=== PATIENT | male | born 1975 | race African-American/Black ===

== ENCOUNTER 2017-02-13 17:39 | Inpatient (IN) ==
[2017-02-13] MEDS ORDERED: SODIUM CHLORIDE 0.9% 1,000 ML IV STA (18:10)
[2017-02-13 18:26] LABS: ABG Base Excess -12.7 MMOL/L (-2.5-2.5); ABG HCO3 14.8 MMOL/L (20-26); ABG Oxygen Saturation 96.8 % (95-100); ABG PCO2 28.4 MM HG (35-48); ABG PH 7.271 (7.35-7.45); ABG PO2 87.3 MM HG (80-95); ABG TCO2 11.5 MMOL/L (23-27); Allen Test Positive
--- NOTE | 2017-02-13 18:37 | Emergency Department Note ---
Perez Najera Brittany, am scribing for, and in the presence of, Torres Dahl M.D. 18:22. Hesham Najera Howard T, M.D., personally performed the services described in this documentation, ascribed by Susy Todd in my presence, and it is both accurate and complete 836 . Arrival - Arrival Chief Complaint: Non-Specific Stated Complaint: HYPERGLYCEMIA ED Nursing Triage Note: C/O HAVING FREQUENT BLOOD GLUCOSE., STATES IT WAS 563 AT HOME FROM A FRIENDS METER, STATES WENT TO HOSPITAL AND THEN IT WAS 461, STATES HE HAS HAD INCREASE URINATION AND INCREASED THIRST OVER THE LAST FEW WEEK Mode of Arrival: Stretcher Limitations: No Limitations Source: Patient, RN Notes Reviewed - History of Present Illness HPI Narrative: Patient is a 41 y/o black male presenting to the ED by EMS from [facility] for further evaluation of DKA. Patient reports that for the past 3 weeks he essentially felt different. He states that he began to have symptoms of fatigue, polydipsia and polyuria. Patient reports that he has no prior history of Diabetes Mellitus, but knows his family history is significant for this history. He notes that last week he did have an episode of nausea and vomiting. He denies any abdominal pain, constipation, or diarrhea. Patient has not eaten today. Per triage note patient took blood glucose levels at home with a friends glucometer which read 563 mg/dL. Upon arrival to [facility] levels were 461 mg/dL. Patient has no other complaint/pain in the ED at this time. Review of System - Review of System 12 point system: reviewed and no additional remarkable complaints except as stated - Review of System Constitutional: Present: as per HPI. Absent: chills, fever Eyes: Absent: vision change Head/Ears/Nose/Throat: Absent: nasal drainage, sore throat Respiratory: Absent: respiratory distress Cardiovascular: Absent: chest pain, palpitations Gastrointestinal: Present: nausea, vomiting. Absent: abdominal pain, diarrhea, constipation Musculoskeletal: Absent: arm pain, back pain, leg pain, neck pain Skin: Absent: rash Neurological: Absent: headache Psychiatric: Absent: anxiety, depression Endocrine: Present: as per HPI, polydipsia, polyuria Hematological/Lymphatic: Absent: easy bleeding, easy bruising Medical,Surgical,& Family Hx - Social History Smoking Status: Smoker, status unknown Frequency of Alcohol Use: Occasionally Type of Drug Use: Marijuana Exam Vital Signs: Vital Signs Temperature 98.0 F 02/13/17 17:42 Pulse Rate 89 02/13/17 17:42 Respiratory Rate 20 02/13/17 17:42 Blood Pressure 135/78 02/13/17 17:42 O2 Sat by Pulse Oximetry 100 02/13/17 17:42 - General General appearance: alert, in no apparent distress - Head Head exam: Present: atraumatic, normocephalic, normal inspection - Eye Eye exam: Present: normal appearance, PERRL, EOMI - ENT ENT exam: Present: normal exam, normal oropharynx, mucous membranes moist - Neck Neck exam: Present: normal inspection, full ROM, trachea midline - Chest Chest inspection: Present: normal inspection, symmetric chest wall rise - Respiratory Respiratory exam: Present: normal lung sounds bilaterally. Absent: rales, rhonchi, wheezes - Cardiovascular Cardiovascular exam: Present: regular rate, normal rhythm, normal heart sounds. Absent: murmur, rubs, gallop - Abdominal Exam Abdominal exam: Present: soft, normal bowel sounds. Absent: distention, tenderness - Extremities Exam Extremities exam: Present: normal inspection - Back Exam Back exam: Present: normal inspection - Neurological Exam Neurological exam: Present: alert, oriented X3, CN II-XII intact. Absent: motor sensory deficit - Psychiatric Psychiatric exam: Present: normal affect - Skin Skin exam: Present: warm, dry Course Course Narrative: Medical decision making: Patient appears comfortable and has no complaints but history is significant for DKA new onset diabetes and therefore discussed with hospitalist for admission and to continue DKA treatment. Results - Labs Lab Results: I have reviewed the patients labs Labs: Laboratory Tests 02/13/17 18:10 ABG pH 7.271 L ABG pCO2 28.4 L ABG pO2 87.3 ABG HCO3 14.8 L ABG Total CO2 11.5 L ABG O2 Saturation 96.8 ABG Base Excess -12.7 L FiO2 21.00 Disposition Clinical Impression: DKA (diabetic ketoacidoses) Case discussed with: patient Disposition: Disch/Xfer-[facility] Term Hos Condition: Stable Time of Disposition: 18:36
[2017-02-13] MEDS ORDERED: MAGNESIUM SULF RIDER 4 GM in PREMIX 1 EACH IV PRN (18:43)
[2017-02-13] MEDS ORDERED: MAGNESIUM SULF RIDER 2 GM in PREMIX 1 EACH IV PRN (18:43)
[2017-02-13] MEDS ORDERED: DEXTROSE 50% 25 GM/50 ML VIAL IV PRN ×2 (18:43)
[2017-02-13] MEDS ORDERED: SODIUM CHLORIDE 0.9% IV PRN (18:54)
[2017-02-13] MEDS ORDERED: SODIUM BICARB INJ 100 MEQ in STERILE WATER INJ 400 ML IV PRN (18:54)
[2017-02-13] MEDS ORDERED: SODIUM PHOSPHATE IV PRN (18:54)
[2017-02-13] MEDS ORDERED: SODIUM CHLORIDE 0.9% 1,000 ML IV ONE (18:54)
--- NOTE | 2017-02-13 19:04 | XRay Report ---
Exam: XR chest 1V Date: 02/13/2017 6:44 PM Comparison: None Indication: Shortness of breath Technique:[Portable AP sitting chest] Findings: The heart is normal in size with minimal diffuse parenchymal findings at the lung bases. Unremarkable mediastinum and osseous structures appear Impression: Minimal atelectasis/infiltration at the lung bases. PROCEDURE INTERPRETED AT [facility] DEPARTMENT OF RADIOLOGY Final Report Signed by: Dr. Ana Mederos
[2017-02-13 19:05] LABS: Magnesium 2.2 MG/DL (1.8-2.4); Phosphorous 1.5 MG/DL (2.5-4.9)
[2017-02-13 19:12] LABS: Calcium 7.7 MG/DL (8.5-10.1); Osmolality,Calculated 277.1 MOS/KG (273-304); Potassium 3.9 MMOL/L (3.5-5.1)
--- NOTE | 2017-02-13 19:30 | Hospitalist History & Physical ---
Assessment and Plan - Time spent with patient Time spent with patient: Greater than 30 minutes (1) DKA (diabetic ketoacidoses) Status: Acute Assessment and plan: pH 7.27, pCO2 28.4, HCO3 14.8, Glu 270, b-Hydroxybutyric 4.8. IV fluids. Insulin per protocol. Hemoglobin A1c Current Visit: Yes History of Present Illness Chief complaint: DKA History of present illness: Mr. Becker is a 41 year old male with no significant past medical history presented to the ED today with complaints of new onset hyperglycemia. The patient stated that he noted increased thirst, urinating about 3 weeks ago. He states that today, while visiting family, he checked his blood sugar and noted it to be 564. He decided to come to the hospital to have this evaluated. On exam , the patient is lying in bed and in NAD. His is at bedside. He denies any vision changes, headache, chest pain, near syncope, diaphoresis, N/V/D or numbness/tingling. He does note a decrease in his appetite over the last 3 weeks and says that he believes he has lost approximately 50 pounds in that time. Preliminary lab work shows DKA pH 7.27 pCO2 28.4 HCO3 14.8. Na 135, K 3.9 , CO2 18, BUN 6, Cr 1.00, Glu 270, b-Hydroxybutyric 4.8. He will be admitted to the hospital medicine team for further evaluation and treatment. This patient is a full code. Medical,Surgical,& Family Hx - Social History Smoking Status: Current every day smoker (1 pk every 2 days) Frequency of Alcohol Use: Occasionally Type of Drug Use: Marijuana Marital Status: Lives With:: Spouse Functional capacity: independent ambulation 12 point system: reviewed and no additional remarkable complaints except as stated Exam - Constitutional Vitals: Period Temp Pulse Resp BP Sys/Gomes Pulse Ox Last 24 Hr 80 20 129/84 100 Exam: General appearance: obese, no acute distress - Head Head exam: Present: normocephalic, atraumatic - Eye Eye exam: Present: EOMI. Absent: conjunctival injection, nystagmus Pupils: Present: XIMENA, normal accommodation - ENT ENT exam: Present: normal exam, normal external ear exam - Neck Neck exam: Present: normal inspection. Absent: lymphadenopathy, tenderness, thyromegaly - Respiratory Respiratory exam: Present: clear to auscultation bilaterally. Absent: rales, rhonchi, wheezes - Cardiovascular Cardiovascular exam: Present: regular rate and rhythm. Absent: carotid bruit, gallop, rubs - GI/Abdominal GI/Abdominal exam: Present: normal bowel sounds. Absent: ascites, distended, mass - Extremities Exam Extremities exam: Present: normal inspection, normal capillary refill. Absent: edema - Back Exam Back exam: Absent: CVA tenderness (L), CVA tenderness (R) - Neurological Exam Neurological exam: Present: alert, oriented X3 - Psychiatric Psychiatric exam: Present: normal affect, normal mood - Skin Skin exam: Present: normal color, warm, dry Results - Labs CBC & BMP: 02/13/17 18:32 Lab Results: I have reviewed the past 24 hour labs
[2017-02-13] MEDS: INSULIN REGULAR DRIP 100 ML IV SCH (20:20)
[2017-02-13] MEDS: SODIUM CHLORIDE 0.9% 1,000 ML IV SCH (21:12)
[2017-02-13 21:57] LABS: Apearance,Urine CLEAR (Clear); Bilirubin,Urine Negative (Negative); Blood, Urine Moderate mg/dL (Negative); Glucose,Urine (UA) >=500 mg/dL (Negative); Ketones,Urine 80 mg/dL (Negative); Mucus,Urine Occasional /LPF (Occasional); Nitrite,Urine Negative (Negative); Protein,Urine Negative; RBC,Urine <1 /HPF (0-4); Urine Color Straw (Yellow); Urine Specific Gravity 1.014 (1.001-1.035); Urine Urobilinogen < 2.0 EU/DL (0.2-1.0); WBC,Urine 1 /HPF (0-6)
[2017-02-13] MEDS: DEXTROSE 5% NACL 0.9% 1,000 ML IV SCH (22:20)
[2017-02-13 23:24] LABS: Calcium 7.2 MG/DL (8.5-10.1); Osmolality,Calculated 278.4 MOS/KG (273-304); Potassium 3.2 MMOL/L (3.5-5.1)
[2017-02-13] MEDS: POTASSIUM CHLORIDE RIDER 10 MEQ in PREMIX 1 EACH IV PRN (23:40)
[2017-02-14] MEDS ORDERED: SODIUM CHLORIDE 0.9% 1,000 ML IV SCH (00:05)
[2017-02-14] MEDS: DEXTROSE 5% NACL 0.9% 1,000 ML IV SCH ×4 (00:47→08:43)
[2017-02-14] MEDS: POTASSIUM CHLORIDE RIDER 10 MEQ in PREMIX 1 EACH IV PRN ×4 (00:49→08:35)
[2017-02-14] MEDS: SODIUM CHLORIDE 0.9% 1,000 ML IV SCH ×3 (02:10→16:19)
[2017-02-14 03:22] LABS: Basophils % 0.3 % (0.0-0.8); Eosinophils # 0.1 10*3/uL (0.0-0.87); Eosinophils % 1.2 % (0.00-10.9); Hematocrit 35.5 VOL% (42.0-52.0); Hemoglobin 12.2 GM/DL (14.0-18.0); Immature Granulocytes % 0.6 %; Immature Granulocytes Absolute 0.04 #; Lymphocytes # 1.5 10*3/uL (1.4-4.0); Lymphocytes % 22.5 % (21.2-54.2); Mean Corpuscular HGB Conc 34.4 GM/DL (32-36); Mean Corpuscular Hemoglobin 26 PG (27-34); Mean Corpuscular Volume 75.5 FL (87-102); Monocytes # 0.4 10*3/uL (0.11-0.8); Monocytes % 6.6 % (1.7-12.7); Neutrophils # 4.6 10*3/uL (1.4-7.4); Neutrophils % 68.8 % (38.7-73.9); Platelet Count 198 T/CUMM (130-400); White Blood Count 6.6 T/CUMM (4-12)
[2017-02-14 03:41] LABS: Magnesium 1.9 MG/DL (1.8-2.4); Phosphorous 0.7 MG/DL (2.5-4.9)
[2017-02-14 03:43] LABS: Risk Ratio 4.54; VLDL CHOLESTEROL 73.8 MG/DL
[2017-02-14 03:49] LABS: Calcium 7.5 MG/DL (8.5-10.1); Osmolality,Calculated 279.3 MOS/KG (273-304); Potassium 3.3 MMOL/L (3.5-5.1)
[2017-02-14] MEDS: INSULIN REGULAR DRIP 100 ML IV SCH (04:03)
[2017-02-14] MEDS: DEXT 5% NACL 0.45% KCL 20 MEQ 20 MEQ/1,000 ML BAG IV SCH ×2 (05:55→09:47)
[2017-02-14 08:27] LABS: Calcium 7.3 MG/DL (8.5-10.1); Osmolality,Calculated 281.1 MOS/KG (273-304); Potassium 3.3 MMOL/L (3.5-5.1)
[2017-02-14] MEDS ORDERED: DEXTROSE 50% 25 GM/50 ML VIAL IV PRN (08:39)
[2017-02-14] MEDS ORDERED: GLUCAGON 1 MG VIAL IM PRN (08:39)
[2017-02-14] MEDS: PANTOPRAZOLE 40 MG TABLET PO SCH (08:48)
--- NOTE | 2017-02-14 09:00 | Hospitalist Progress Note ---
Assessment and Plan (1) Diabetes mellitus type 2 with hyperosmolarity, uncontrolled Status: Acute Assessment and plan: This patient was admitted to the hospital with elevated blood glucose and mild volume depletion associated acidosis. Because of age 41, mild obesity, and family history of diabetes mellitus type 2, it appears that the patient has diabetes mellitus type 2. The patient has been treated overnight with volume resuscitation and IV infusion of insulin. The patient's blood glucose has better controlled now he is ready to transition to oral diet, repletion of potassium, sliding scale insulin, and initiate oral antidiabetic medications. Diabetes education is underway. The patient is ready to transfer out of intensive care. Current Visit: Yes Qualifiers: Diabetes mellitus complication detail: without coma Diabetes mellitus livestock nutritionist insulin use: without livestock nutritionist use Qualified Code(s): E11.00 - Type 2 diabetes mellitus with hyperosmolarity without nonketotic hyperglycemic- hyperosmolar coma ([facility]) (2) Hypokalemia Status: Acute Current Visit: Yes Hospitalist: Subjective Interval history: The patient is awake alert and oriented. The patient is hungry and ready to eat. The patient has no complaint of shortness of breath or chest pain. Exam - Constitutional Vitals: Period Temp Pulse Resp BP Sys/Gomes Pulse Ox Last 24 Hr 97.4 F-98.3 F 74-89 14-21 100-148/60-94 94-100 Exam: Constitutional System: No distress. No tremulousness. Head: Normocephalic, atraumatic. Ears, Nose and Throat System: No evidence of Otitis or Mastoiditis. No epistaxis or discharge Eyes System: Pupils equal, round, and reactive. Extraocular muscles intact. Neck: Supple, without adenopathy, No jugular venous distention. No thyromegaly , neck mass, or prior surgery apparent. Respiratory System: Chest clear to auscultation. Cardiovascular System: Heart with regular rate and rhythm. No murmur. GI System: Abdomen soft, nontender. Normo active bowel sounds present. Musculoskeletal System: limbs with no pedal edema. Full distal pulses. Neurological System: No discernable sensory deficit. No aphasia Psychiatric System: Conversation is rational Results - Labs CBC & BMP: 02/14/17 03:15 02/14/17 07:55 Lab Results: I have reviewed the past 24 hour labs
[2017-02-14] MEDS: INSULIN LISPRO 100 UNIT/ML SUBCUT SCH ×4 (09:05→20:35)
[2017-02-14] MEDS: metFORMIN 500 MG TABLET PO SCH (09:12)
[2017-02-14] MEDS: INSULIN GLARGINE 100 UNIT/ML SUBCUT SCH (09:13)
[2017-02-14] MEDS: POTASSIUM CHLORIDE 20 MEQ TABLET PO SCH ×3 (09:13→16:17)
[2017-02-14 11:17] LABS: Calcium 7.9 MG/DL (8.5-10.1); Osmolality,Calculated 278.7 MOS/KG (273-304); Potassium 3.9 MMOL/L (3.5-5.1)
[2017-02-14] MEDS ORDERED: SODIUM CHLORIDE 0.45% 1,000 ML IV SCH (12:05)
[2017-02-14 15:11] LABS: Calcium 7.8 MG/DL (8.5-10.1); Osmolality,Calculated 280.8 MOS/KG (273-304); Potassium 4.1 MMOL/L (3.5-5.1)
[2017-02-14] MEDS: glipiZIDE 10 MG TABLET PO SCH (16:17)
[2017-02-15] MEDS: INSULIN LISPRO 100 UNIT/ML SUBCUT SCH ×5 (03:48→21:59)
[2017-02-15] MEDS: SODIUM CHLORIDE 0.9% 1,000 ML IV SCH ×2 (03:49→08:01)
[2017-02-15] MEDS: glipiZIDE 10 MG TABLET PO SCH ×2 (07:58→16:26)
[2017-02-15] MEDS: PANTOPRAZOLE 40 MG TABLET PO SCH ×2 (07:58→08:01)
[2017-02-15] MEDS: metFORMIN 500 MG TABLET PO SCH ×2 (07:58→16:26)
[2017-02-15] MEDS: INSULIN GLARGINE 100 UNIT/ML SUBCUT SCH (07:59)
--- NOTE | 2017-02-15 15:16 | Hospitalist Progress Note ---
Assessment and Plan (1) Diabetes mellitus type 2 with hyperosmolarity, uncontrolled Status: Acute Assessment and plan: This patient was admitted to the hospital with elevated blood glucose and mild volume depletion associated acidosis. Because of age 41, mild obesity, and family history of diabetes mellitus type 2, it appears that the patient has diabetes mellitus type 2. The patient has been treated overnight with volume resuscitation and IV infusion of insulin. The patient's blood glucose is better controlled now he has completed transition to oral diet, repletion of potassium, sliding scale insulin, and initiate oral antidiabetic medications. Diabetes education is underway. The patient should be ready for discharge home tomorrow. Current Visit: Yes Qualifiers: Diabetes mellitus complication detail: without coma Diabetes mellitus technician terminal and repeater insulin use: without longterm use Qualified Code(s): E11.00 - Type 2 diabetes mellitus with hyperosmolarity without nonketotic hyperglycemic- hyperosmolar coma ([facility]) (2) Hypokalemia Status: Acute Current Visit: Yes Hospitalist: Subjective Interval history: The patient continues to improve. He is more energetic today and blood glucose control is at survival level. We continue on oral antidiabetic medications plus Lantus. The patient is receiving sliding scale insulin. The patient is motivated to improve lifestyle. The patient has no shortness of breath or chest discomfort today. Exam - Constitutional Vitals: Period Temp Pulse Resp BP Sys/Gomes Pulse Ox Last 24 Hr 97.6 F-99.1 F 70-83 17-20 113-137/67-81 96-100 Exam: Constitutional System: No distress. No tremulousness. Head: Normocephalic, atraumatic. Ears, Nose and Throat System: No evidence of Otitis or Mastoiditis. No epistaxis or discharge Eyes System: Pupils equal, round, and reactive. Extraocular muscles intact. Neck: Supple, without adenopathy, No jugular venous distention. No thyromegaly , neck mass, or prior surgery apparent. Respiratory System: Chest clear to auscultation. Cardiovascular System: Heart with regular rate and rhythm. No murmur. GI System: Abdomen soft, nontender. Normo active bowel sounds present. Musculoskeletal System: limbs with no pedal edema. Full distal pulses. Neurological System: No discernable sensory deficit. No aphasia Psychiatric System: Conversation is rational Results - Labs CBC & BMP: 02/14/17 03:15 02/14/17 14:42 Lab Results: I have reviewed the past 24 hour labs
--- NOTE | 2017-02-16 07:11 | Discharge Summary ---
Hospital Course - Hospital Course Hospital Course: The patient was admitted to the hospital with diabetes mellitus type 2 hyperosmolar state with mild ketoacidosis. The patient was treated in the intensive care unit with volume repletion and insulin infusion. The following day we started the patient on oral antidiabetic medications. They are providing insufficient glucose control. The patient will require intermediate acting insulin twice daily in order to achieve survival level glucose control. The patient's pharmaceutical choices are limited by the requirement to purchase his medication without insurance. Therefore we will use the [employer] $4 list and rely on intermediate acting insulin twice daily. The patient will follow up with primary care physician of his choice as an outpatient. His family has several members with diabetes and he is familiar with the requirements of managing the glucose. The patient had diabetes education while he was in the hospital. On the date of discharge, chest is clear and abdomen soft. 34 minutes time was removed required to arrange the discharge and visit with the patient. - Time spent with patient Time with patient DS: Greater than 30 minutes Diagnosis - Discharge Diagnosis (1) Diabetes mellitus type 2 with hyperosmolarity, uncontrolled Status: Chronic (2) Hypokalemia Status: Resolved Discharge Plan - Discharge Data Disposition: Disch To Home/Self Care Condition at Discharge: Stable Discharge Diet: diabetic diet Activity: resume usual activities as tolerated - Discharge Medications New Insulin NPH [HumuLIN N] 12 unit SUBCUT BIDAC #10 ml Metformin HCl 1,000 mg PO BID W/MEALS #100 tablet glipiZIDE [Glucotrol] 10 mg PO BIDAC #100 tablet - Follow Up or Referral Follow Up: PCP,[facility] [Other] - 1 Month - Forms/Instructions Exam - Constitutional Vitals: Period Temp Pulse Resp BP Sys/Gomes Pulse Ox Last 24 Hr 96.5 F-98.9 F 70-81 16-20 108-133/62-80 96-100 Discharge Results Procedures and tests throughout hospitalization: Pending Orders 02/13/17 20:02 Blood Culture Stat 02/16/17 06:31 Basic Metabolic Panel w/Mg IN AM Labs on day of discharge: Labs from last 24 hours 02/15/17 02/15/17 02/15/17 20:20 16:12 12:37 POC Glucose 191 H 328 H 255 H 02/15/17 07:13 POC Glucose 180 H Preliminary micro results at discharge 02/13/17 20:02 Blood Culture - Preliminary Blood No growth at 1 day 02/13/17 20:02 Blood Culture - Preliminary Blood No growth at 1 day DS: Provider Date of admission: 02/13/17 18:42 Primary care physician: . Maria L PCP Attending physician on admission: Liam Doan MD Consults: 02/13/17 18:44 Consult to Diabetes Center, Educator [CONS] Routine Reason for Program Counselor: Diabetes Education Initial Insulin Education Consult Comment: INSULIN EDUCATION 02/13/17 19:58 Consult to Diabetes Center, Educator [CONS] Routine Reason for Program Counselor: Diabetes Education 02/13/17 20:34 Consult to Pastoral Services [CONS] Routine Comment: Pastoral Screen: Request Laboratory Specialist Visit Pastoral Screen Source of Request: Patient Family Discharging clinician: Liam Doan MD
[2017-02-16 07:20] LABS: Calcium 8.3 MG/DL (8.5-10.1); Magnesium 1.7 MG/DL (1.8-2.4); Osmolality,Calculated 287.4 MOS/KG (273-304); Potassium 3.8 MMOL/L (3.5-5.1)
[2017-02-16 07:27] VITALS: BP 135/75
[2017-02-16] MEDS: INSULIN LISPRO 100 UNIT/ML SUBCUT SCH (08:38)
[2017-02-16] MEDS: glipiZIDE 10 MG TABLET PO SCH (08:39)
[2017-02-16] MEDS: metFORMIN 500 MG TABLET PO SCH (08:39)
[2017-02-16] MEDS: PANTOPRAZOLE 40 MG TABLET PO SCH (08:40)
[2017-02-16] MEDS: INSULIN GLARGINE 100 UNIT/ML SUBCUT SCH (08:40)
== END 2017-02-16 09:02 | disposition home or self-care (01) | DRG 639 ==
LOC: N.ED 17:39 → N.EDINP 18:42 → N.CC 19:03 → N.5E 02-14 10:52
PROVIDERS: ADMIT Internal Medicine; ATTEND Internal Medicine